=== PATIENT | male | born 1990 | race Caucasian/White ===

== ENCOUNTER 2023-07-26 10:57 | Outpatient (AMB) | payer BC, SELFPAY ==
--- NOTE | 2023-07-26 11:02 | A.OFFVIS_ITS ---
Intake Vital Signs 07/26/23 11:03 Height 5 ft 9 in Weight 167 lb 15.876 oz BMI 24.8 BP 138/82 Blood Pressure Location Rt brachial Position Sitting Pulse 78 Pulse Source Pulse Oximeter Temp 98.4 F Temp Source Skin Pulse Oximetry (%) 99 Oxygen Delivery Method Room Air Intake Visit Reasons: Spondyloarthropathy Intake Note: New patient here for spondyloarthropathy Former patient [facility] Dr[facility] Fabricio Maldonado [facility] [place] c/o left ankle pain that worsens with ambulation. Band Teacher Required: No Accompanied by: Self / Same As Patient Allergies methotrexate Allergy (Mild, Verified 07/26/23 11:03) elevated LFT's Medication List - Last Reconciled 07/26/23 by Amauri Altman MD folic acid 1 mg PO DAILY sulfasalazine 1,500 mg PO BID HPI HPI Comments History of Present Illness Details This is a 32-year-old male with non axial HLA B27 spondyloarthropathy who presents as a new patient. His previous beaver trapper left the practice. Patient states that he has been doing fairly well with no swollen or stiff joints. His PCP has been refilling his sulfasalazine. He is compliant with sulfasalazine 3 tabs Twice daily. States that occasionally he would get pain in his left heel with taking a step and it goes away with the subsequent step. Denies any swelling or stiffness of his ankles. States that his left toes have been deformed since his diagnosis in his 20s, it has not been progressively more deformed. Gets occasional low back pain but it is not an everyday phenomenon. No history suggestive of uveitis Per Dr. Maldonado: Non axial HLA B27 positive spondyloarthropathy which diagnosed in his 20s.? 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 [employer] Eyes Reports no additional complaints Musc Reports back pain and Reports arthralgias Physical Exam Vital Signs: Last Vital Signs Temp 98.4 F 07/26/23 11:03 Pulse 78 07/26/23 11:03 BP 138/82 07/26/23 11:03 Pulse Ox 99 07/26/23 11:03 Oxygen Delivery Method Room Air 07/26/23 11:03 BMI result Body Mass Index 24.8 Const General: cooperative, healthy appearing and comfortable Nutritional Appearance: average body habitus Orientation/consciousness: patient oriented x3 Limitations: no limitations HEENT Head: Yes normocephalic and Yes atraumatic Mouth: moist mucous membranes Resp Effort & Inspection: normal respiratory effort and able to speak in complete sentences Auscultation: clear to auscultation bilaterally Cardio Rate: regular rate Rhythm: regular rhythm GI Inspection: No distended Palpation (GI): Soft to palpation and nontender Skin General skin exam: no rashes or lesions noted Neuro General: patient oriented x3 Extrem Other: No active synovitis Normal range of motion of both elbows or shoulders Negative resisted wrist extension test bilaterally No nail pitting No swollen or tender ankles Mild deformity of his left foot toes with no swelling or tenderness Negative MTP squeeze test bilaterally Assessment & Plan Assessment & Plan (1) Undifferentiated spondyloarthropathy: Comment: HLA b27 +ve dx in his 20s MTX 02/16 partially effective DC due to transaminitis SSZ 06/2018 effective LEF added 2017 ineffective Code(s): M47.819 - Spondylosis without myelopathy or radiculopathy, site unspecified Plan: This is a 32-year-old male with non axial HLA B27 positive spondyloarthropathy who presents as a new patient. His previous beaver trapper left the practice. Patient is in remission on sulfasalazine 1.5 g Twice daily. Continue sulfasalazine 1.5 g Twice daily. Check labs today. Follow-up in 4 months Plan I spent 46 minutes reviewing patient's chart, evaluating patient, ordering diagnostic workup, counseling patient and documenting in the chart Orders: Orders Complete Blood Count Auto Diff Today M47.819 - Spondylosis without myelopathy or radiculopathy, site unspecified Comprehensive Met. Panel Today M47.819 - Spondylosis without myelopathy or radiculopathy, site unspecified C Reactive Protein Today M47.819 - Spondylosis without myelopathy or radiculopathy, site unspecified Erythrocyte Sedimentation Rate Today M47.819 - Spondylosis without myelopathy or radiculopathy, site unspecified Hepatitis A,B,C Profile Today Z11.59 - Encounter for screening for other viral diseases T Spot TB Today Z11.7 - Encounter for testing for latent tuberculosis infection Medications: New sulfasalazine 1,500 mg (3 x 500 mg) PO BID 180 tabs 0RF Coding Level of Care Code New Pt Level 4 (94638) Diagnoses Undifferentiated spondyloarthropathy M47.818
[2023-07-26 11:03] VITALS: BP 138/82; PULSE 78; TEMP 36.9; O2SAT 99; BMI 24.8
== END 2023-07-26 11:37 | disposition home or self-care (01) ==
PROVIDERS: PCP Family Medicine; Visit Provider Student in an Organized Health Care Education/Training Program
DX: M47.819 Spondylosis without myelopathy or radiculopathy, site unspecified (principal)
CPT/HCPCS: 99204

== ENCOUNTER → 2023-07-26 10:57 | Outpatient (BNVA) | payer BC, SELFPAY | PROVIDERS: Visit Provider Student in an Organized Health Care Education/Training Program ==

== ENCOUNTER 2023-08-22 11:12 | Outpatient (REF) | payer BC, SELFPAY ==
[2023-08-22 13:13] LABS: MANUAL DIFF FLAG NO
[2023-08-22 13:24] LABS: Basophils Percent Auto 0.7 % (0-2); Eosinophils Absolute Auto 0.1 X10*3/uL (0.0-0.4); Eosinophils Percent Auto 2.6 % (0-4); Hematocrit 45.4 % (42.0-52.0); Hemoglobin 15.6 g/dl (14.0-18.0); Imm Gran Abs Auto 0.01 X10*3/uL (0.00-0.03); Imm Gran Pct Auto 0.2 % (0.0-0.4); Lymphocytes Absolute Auto 1.5 X10*3/uL (1.2-4.9); Lymphocytes Percent Auto 33.1 % (20-40); Mean Corpuscular HGB Conc 34.4 g/dl (31.0-36.0); Mean Corpuscular Hemoglobin 32.8 pg (27.0-33.0); Mean Corpuscular Volume 95.4 fL (80.0-98.0); Mean Platelet Volume 9.6 fL (9.4-12.4); Monocytes Absolute Auto 0.5 X10*3/uL (0.1-1.2); Monocytes Percent Auto 11.6 % (2-11); Neutrophils Absolute Auto 2.4 x10*3/uL (2.0-8.3); Neutrophils Percent Auto 51.8 % (45-73); Platelet Count 210 X10*3/uL (160-400); Red Blood Count 4.76 X10*6/uL (4.60-5.80); Red Cell Distribution Width 11.4 % (11.0-16.0); White Blood Count 4.6 X10*3/uL (4.8-10.8)
[2023-08-22 13:42] LABS: Alanine Aminotransferase 26 U/L (0-40); Albumin Level 4.3 g/dL (3.5-5.0); Alkaline Phosphatase 86 U/L (39-117); Anion Gap 11 (12-20); Aspartate Amino Transferase 23 U/L (5-37); Bilirubin Total 1.3 mg/dL (0.0-1.0); Blood Urea Nitrogen 8 mg/dL (9-16); C Reactive Protein 0.34 mg/dL (< or = 0.50); Calcium 9.7 mg/dL (8.4-10.2); Carbon Dioxide 25 mmol/L (22-29); Chloride 108 mmol/L (96-108); Estimated Glomerular Filt Rate > 60; Glucose Random 89 mg/dL (60-115); Potassium 3.9 mmol/L (3.3-5.1); Sodium 140 mmol/L (135-145); Total Protein 6.6 g/dL (6.5-8.0)
[2023-08-22 13:58] LABS: Erythrocyte Sedimentation Rate 3 MM/HR (0-15)
[2023-08-23 08:37] LABS: HBS Num1 438.38 mIU/mL (0-7.99); HBc Num1 0.06 S/CO (0.00-0.79); HBsAGNum1 0.27 S/CO (0.00-0.99); Hepatitis A Antibody IgM 0.12 Index (0-0.79); Hepatitis B Core Antibody Nonreactive (Nonreactive); Hepatitis B Surface Antigen Negative (Negative); ~HepC Num1 0.07 S/CO (0.00-0.79); ~Hepatitis A Antibody IgM Nonreactive (Nonreactive); ~Hepatitis B Surface Antibody REACTIVE (Nonreactive); ~Hepatitis C Antibody Nonreactive (Nonreactive)
[2023-08-24 16:28] LABS: TS Negative Control Passed; TS Panel A 2; TS Panel B 0; TS Positive Control Passed; TSpotTB Negative (Negative)
== END 2023-08-22 11:13 | disposition home or self-care (01) ==
LOC: HO.10HDL 11:12
PROVIDERS: Visit Provider Student in an Organized Health Care Education/Training Program
DX: M47.819 Spondylosis without myelopathy or radiculopathy, site unspecified (principal); Z11.7 Encounter for testing for latent tuberculosis infection; Z11.59 Encounter for screening for other viral diseases; Z72.89 Other problems related to lifestyle
CPT/HCPCS: 36415; 80053; 85025; 85652; 86140; 86481; 86704; 86706; 86709; 86803; 87340

== ENCOUNTER 2023-11-19 10:38 | Outpatient (AMB) | payer BC, SELFPAY ==
[2023-11-19 10:44] VITALS: BP 128/70; PULSE 86; TEMP 36.7; O2SAT 98; BMI 24.5
--- NOTE | 2023-11-19 10:44 | MHC.OFFVIS ---
Intake Vital Signs 11/19/23 10:44 Height 5 ft 9 in Weight 166 lb 3.657 oz BMI 24.5 BP 128/70 Blood Pressure Location Rt brachial Position Sitting Pulse 86 Pulse Source Pulse Oximeter Temp 98.1 F Temp Source Skin Pulse Oximetry (%) 98 Oxygen Delivery Method Room Air Intake Visit Reasons: Spondylarthropathy Intake Note: Pt last seen 07/26/23, presents today for follow up and test results. Personal Financial Representative Required: No Accompanied by: Self / Same As Patient Allergies methotrexate Allergy (Mild, Verified 11/19/23 10:45) elevated LFT's Medication List - Last Reconciled 11/19/23 by Amauri Altman MD folic acid 1 mg PO DAILY sulfasalazine Six tabs on Mondays and 3 tabs the rest of the week orally; HPI HPI Comments History of Present Illness Details 33 year old male with HLA B27 positive spondyloarthropathy presents for follow-up. Sulfasalazine is prescribed as 3 tabs Twice daily. But patient states that for years now he has been taking 3 tabs twice daily on Mondays only, the rest of the week he takes 3 tabs once daily in the morning and has been doing well with no flare-ups. Patient has no complaints today. Initial history: This is a 32-year-old male with non axial HLA B27 spondyloarthropathy who presents as a new patient. His previous project management manager left the practice. Patient states that he has been doing fairly well with no swollen or stiff joints. His PCP has been refilling his sulfasalazine. He is compliant with sulfasalazine 3 tabs Twice daily. States that occasionally he would get pain in his left heel with taking a step and it goes away with the subsequent step. Denies any swelling or stiffness of his ankles. States that his left toes have been deformed since his diagnosis in his 20s, it has not been progressively more deformed. Gets occasional low back pain but it is not an everyday phenomenon. No history suggestive of uveitis Per Dr. Maldonado: Non axial HLA B27 positive spondyloarthropathy which diagnosed in his 20s.? 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 [employer] Systems Musc Denies back pain, Denies arthralgias and Denies stiffness Physical Exam Vital Signs: Last Vital Signs Temp 98.1 F 11/19/23 10:44 Pulse 86 11/19/23 10:44 BP 128/70 11/19/23 10:44 Pulse Ox 98 11/19/23 10:44 Oxygen Delivery Method Room Air 11/19/23 10:44 BMI result Body Mass Index 24.5 Const General: cooperative, healthy appearing and comfortable Nutritional Appearance: average body habitus Orientation/consciousness: patient oriented x3 Limitations: no limitations HEENT Head: Yes normocephalic and Yes atraumatic Mouth: moist mucous membranes Resp Effort & Inspection: normal respiratory effort and able to speak in complete sentences Auscultation: clear to auscultation bilaterally Cardio Rate: regular rate Rhythm: regular rhythm GI Inspection: No distended Palpation (GI): Soft to palpation and nontender Skin General skin exam: no rashes or lesions noted Neuro General: patient oriented x3 Extrem Other: No active synovitis Normal range of motion of both elbows or shoulders Negative resisted wrist extension test bilaterally No nail pitting No swollen or tender ankles Negative MTP squeeze test bilaterally Assessment & Plan Assessment & Plan (1) Undifferentiated spondyloarthropathy: Comment: HLA b27 +ve dx in his 20s MTX 02/16 partially effective DC due to transaminitis SSZ 06/2018 effective LEF added 2017 ineffective Code(s): M47.819 - Spondylosis without myelopathy or radiculopathy, site unspecified Plan: This is a 33-year-old male with non axial HLA B27 positive spondyloarthropathy who presents for follow-up. Sulfasalazine is prescribed as 1.5 g twice daily but patient has been taking 3 g on Mondays only, the rest of the week he would take 1.5 g daily. He is in remission Patient can continue with the current dose. Labs before next visit in 4 months (2) On correction drug therapy: Code(s): Z79.899 - Other correction (current) drug therapy Plan: Monitor safety labs (3) Immunization counseling: Code(s): Z71.85 - Encounter for immunization safety counseling Plan: Patient on the flu vaccine for this season, I suggested getting the new COVID booster to help prevent the spread of the current COVID-19 surge, patient is not interested in COVID-19 vaccination Plan I spent 26 minutes reviewing patient's chart, evaluating patient, ordering diagnostic workup, counseling patient and documenting in the chart Coding Level of Care Code Est Pt Level 4 (02009) Diagnoses Undifferentiated spondyloarthropathy M47.819 On buttermaker continuous churn drug therapy Z79.899 Immunization counseling Z71.85
== END 2023-11-19 10:56 | disposition home or self-care (01) ==
PROVIDERS: PCP Family Medicine; Visit Provider Student in an Organized Health Care Education/Training Program
DX: M47.819 Spondylosis without myelopathy or radiculopathy, site unspecified (principal); Z79.899 Other long term (current) drug therapy; Z71.85 Encounter for immunization safety counseling
CPT/HCPCS: 99214

== ENCOUNTER → 2023-11-19 10:38 | Outpatient (BNVA) | payer BC, SELFPAY | PROVIDERS: PCP Family Medicine; Visit Provider Student in an Organized Health Care Education/Training Program ==

== ENCOUNTER 2024-06-02 14:21 | Outpatient (AMB) | payer BC, SELFPAY ==
--- NOTE | 2024-06-02 14:23 | MHC.OFFVIS ---
Vital Signs 06/02/24 14:26 Height 5 ft 9 in Weight 184 lb 4.903 oz BMI 27.2 BP 132/80 Blood Pressure Location Lt brachial Position Sitting Pulse 92 Pulse Source Pulse Oximeter Pulse Oximetry (%) 95 Oxygen Delivery Method Room Air Intake Visit Reasons: SpA /LVM Intake Note: Patient presents for SpA. Allergies methotrexate Allergy (Mild, Verified 06/02/24 14:26) elevated LFT's Medication List - Last Reconciled 06/02/24 by Amauri Altman MD folic acid 1 mg PO DAILY sulfasalazine Six tabs on Mondays and 3 tabs the rest of the week orally; HPI Comments Details: 33 year old male with HLA B27 positive spondyloarthropathy presents for follow-up. Continues to take sulfasalazine 3 g on Mondays and 1.5 g daily the rest of the week. States that he has been feeling reasonably well overall except in when he had pain and swelling of the front of his left knee as well as the back of his knee. He was evaluated and was told that he had a Gerardo's cyst. The cyst was drained and he had a steroid injection with no recurrence of left knee pain and swelling. He continues to have rare pain and swelling of his elbows and ankles. He was having subtle rashes above his eyebrows, the front of his scalp and behind his ears, he was prescribed hydrocortisone cream but he does not use it regularly. He was told he had psoriasis. Initial history: This is a 32-year-old male with non axial HLA B27 spondyloarthropathy who presents as a new patient. His previous anesthesiology physician assistant left the practice. Patient states that he has been doing fairly well with no swollen or stiff joints. His PCP has been refilling his sulfasalazine. He is compliant with sulfasalazine 3 tabs Twice daily. States that occasionally he would get pain in his left heel with taking a step and it goes away with the subsequent step. Denies any swelling or stiffness of his ankles. States that his left toes have been deformed since his diagnosis in his 20s, it has not been progressively more deformed. Gets occasional low back pain but it is not an everyday phenomenon. No history suggestive of uveitis Per Dr. Maldonado: Non axial HLA B27 positive spondyloarthropathy which diagnosed in his 20s.? 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 Musc Denies back pain, Denies arthralgias and Denies stiffness Physical Exam Vital Signs: Last Vital Signs Pulse 92 06/02/24 14:26 BP 132/80 06/02/24 14:26 Pulse Ox 95 06/02/24 14:26 Oxygen Delivery Method Room Air 06/02/24 14:26 BMI result Body Mass Index 27.2 Const General: cooperative, healthy appearing and comfortable Nutritional Appearance: average body habitus Orientation/consciousness: patient oriented x3 Limitations: no limitations HEENT Head: Yes normocephalic and Yes atraumatic Mouth: moist mucous membranes Resp Effort & Inspection: normal respiratory effort and able to speak in complete sentences Auscultation: clear to auscultation bilaterally Cardio Rate: regular rate Rhythm: regular rhythm GI Inspection: No distended Palpation (GI): Soft to palpation and nontender Skin Other: Psoriasis rash on both ears Neuro General: patient oriented x3 Extrem Other: No active synovitis Negative rotator cuff provocative maneuvers bilaterally Negative Speed's test bilaterally Normal range of motion of both elbows or shoulders Negative resisted wrist extension test bilaterally No nail pitting No swollen or tender ankles Negative MTP squeeze test bilaterally Assessment & Plan Assessment & Plan (1) Undifferentiated spondyloarthropathy: Comment: HLA b27 +ve dx in his 20s MTX 02/16 partially effective DC due to transaminitis SSZ 06/2018 effective LEF added 2017 ineffective Code(s): M47.819 - Spondylosis without myelopathy or radiculopathy, site unspecified Category: Medical Plan: This is a 33-year-old male with undifferentiated HLA B27 positive spondyloarthropathy (likely psoriatic arthritis, psoriasis rash noted today) who presents for follow-up. He takes sulfasalazine 3 g on Mondays and 1.5 g daily the rest of the week. It appears that patient had a flare-up affecting his left knee 2023, he had a Gerardo's cyst and swelling of his left knee which was treated with drainage and a steroid injection without recurrence. Advised patient to call the clinic if he develops any similar flare-ups as his sulfasalazine dose may need to be optimized Continue current meds Labs today and before next visit in 6 months (2) On medical office technician drug therapy: Code(s): Z79.899 - Other senior care (current) drug therapy Category: Medical Plan: Monitor safety labs Plan I spent 26 minutes reviewing patient's chart, evaluating patient, ordering diagnostic workup, counseling patient and documenting in the chart Orders: Orders Comprehensive Met. Panel Today M47.819 - Spondylosis without myelopathy or radiculopathy, site unspecified, Z79.899 - Other medical office technician (current) drug therapy Erythrocyte Sedimentation Rate Today M47.819 - Spondylosis without myelopathy or radiculopathy, site unspecified, Z79.899 - Other senior care (current) drug therapy Comprehensive Met. Panel 11/29/24 M47.819 - Spondylosis without myelopathy or radiculopathy, site unspecified, Z79.899 - Other senior care (current) drug therapy C Reactive Protein 11/29/24 M47.819 - Spondylosis without myelopathy or radiculopathy, site unspecified, Z79.899 - Other medical office technician (current) drug therapy C Reactive Protein 11/24/25 M47.819 - Spondylosis without myelopathy or radiculopathy, site unspecified, Z79.899 - Other senior care (current) drug therapy Erythrocyte Sedimentation Rate 11/29/24 M47.819 - Spondylosis without myelopathy or radiculopathy, site unspecified, Z79.899 - Other medical office technician (current) drug therapy Erythrocyte Sedimentation Rate 05/28/25 M47.819 - Spondylosis without myelopathy or radiculopathy, site unspecified, Z79.899 - Other medical office technician (current) drug therapy Complete Blood Count Auto Diff Today M47.819 - Spondylosis without myelopathy or radiculopathy, site unspecified, Z79.899 - Other senior care (current) drug therapy C Reactive Protein Today M47.819 - Spondylosis without myelopathy or radiculopathy, site unspecified, Z79.899 - Other senior care (current) drug therapy Complete Blood Count Auto Diff Today M47.819 - Spondylosis without myelopathy or radiculopathy, site unspecified, Z79.899 - Other senior care (current) drug therapy Complete Blood Count Auto Diff 11/29/24 M47.819 - Spondylosis without myelopathy or radiculopathy, site unspecified, Z79.899 - Other medical office technician (current) drug therapy Complete Blood Count Auto Diff 05/28/25 M47.819 - Spondylosis without myelopathy or radiculopathy, site unspecified, Z79.899 - Other senior care (current) drug therapy Complete Blood Count Auto Diff 11/24/25 M47.819 - Spondylosis without myelopathy or radiculopathy, site unspecified, Z79.899 - Other medical office technician (current) drug therapy Comprehensive Met. Panel Today M47.819 - Spondylosis without myelopathy or radiculopathy, site unspecified, Z79.899 - Other senior care (current) drug therapy Comprehensive Met. Panel 05/28/25 M47.819 - Spondylosis without myelopathy or radiculopathy, site unspecified, Z79.899 - Other senior care (current) drug therapy Comprehensive Met. Panel 11/24/25 M47.819 - Spondylosis without myelopathy or radiculopathy, site unspecified, Z79.899 - Other medical office technician (current) drug therapy C Reactive Protein Today M47.819 - Spondylosis without myelopathy or radiculopathy, site unspecified, Z79.899 - Other medical office technician (current) drug therapy C Reactive Protein 05/28/25 M47.819 - Spondylosis without myelopathy or radiculopathy, site unspecified, Z79.899 - Other senior care (current) drug therapy Erythrocyte Sedimentation Rate Today M47.819 - Spondylosis without myelopathy or radiculopathy, site unspecified, Z79.899 - Other senior care (current) drug therapy Erythrocyte Sedimentation Rate 11/24/25 M47.819 - Spondylosis without myelopathy or radiculopathy, site unspecified, Z79.899 - Other medical office technician (current) drug therapy Medications: Changed From sulfasalazine Six tabs on Mondays and 3 tabs the rest of the week orally; To sulfasalazine Six tabs on Mondays and 3 tabs daily the rest of the week orally; 288 tabs 1RF Coding Level of Care Code Est Pt Level 4 (05984) Diagnoses Undifferentiated spondyloarthropathy M47.819 On senior care drug therapy Z79.899
[2024-06-02 14:26] VITALS: BP 132/80; PULSE 92; O2SAT 95; BMI 27.2
== END 2024-06-02 14:52 | disposition home or self-care (01) ==
PROVIDERS: PCP Family Medicine; Visit Provider Student in an Organized Health Care Education/Training Program
DX: M47.819 Spondylosis without myelopathy or radiculopathy, site unspecified (principal); Z79.899 Other long term (current) drug therapy
CPT/HCPCS: 99214

== ENCOUNTER → 2024-06-02 14:21 | Outpatient (BNVA) | payer BC, SELFPAY | PROVIDERS: PCP Family Medicine; Visit Provider Student in an Organized Health Care Education/Training Program ==

== ENCOUNTER 2024-12-03 14:29 | Outpatient (AMB) | payer BC, SELFPAY ==
--- NOTE | 2024-12-03 14:51 | MHC.OFFVIS ---
Vital Signs 12/03/24 14:54 Height 5 ft 9 in Weight 194 lb 3.636 oz BMI 28.7 BP 142/90 H Blood Pressure Location Lt brachial Position Sitting Pulse 107 H Pulse Source Pulse Oximeter Pulse Oximetry (%) 97 Oxygen Delivery Method Room Air Intake Visit Reasons: SpA/PsA Intake Note: Patient presents for SpA/PsA. Allergies methotrexate Allergy (Mild, Verified 12/03/24 14:53) elevated LFT's Medication List - Last Reconciled 12/03/24 by Amauri Altman MD folic acid 1 mg PO DAILY sulfasalazine Six tabs on Mondays and 3 tabs daily the rest of the week orally; HPI Comments Details: 34-year-old male with psoriatic arthritis returns for follow-up. States that he has been doing well overall. No recent flare-ups. Denies any joint pain swelling or stiffness. 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 Initial history: This is a 32-year-old male with non axial HLA B27 spondyloarthropathy who presents as a new patient. His previous charter coordinator left the practice. Patient states that he has been doing fairly well with no swollen or stiff joints. His PCP has been refilling his sulfasalazine. He is compliant with sulfasalazine 3 tabs Twice daily. States that occasionally he would get pain in his left heel with taking a step and it goes away with the subsequent step. Denies any swelling or stiffness of his ankles. States that his left toes have been deformed since his diagnosis in his 20s, it has not been progressively more deformed. Gets occasional low back pain but it is not an everyday phenomenon. No history suggestive of uveitis Per Dr. Maldonado: Non axial HLA B27 positive spondyloarthropathy which diagnosed in his 20s.? 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 Musc Denies back pain, Denies arthralgias and Denies stiffness Physical Exam Vital Signs: Last Vital Signs Pulse 107 H 12/03/24 14:54 BP 142/90 H 12/03/24 14:54 Pulse Ox 97 12/03/24 14:54 Oxygen Delivery Method Room Air 12/03/24 14:54 BMI result Body Mass Index 28.7 Const General: cooperative, healthy appearing and comfortable Nutritional Appearance: average body habitus Orientation/consciousness: patient oriented x3 Limitations: no limitations HEENT Head: Yes normocephalic and Yes atraumatic Mouth: moist mucous membranes Resp Effort & Inspection: normal respiratory effort and able to speak in complete sentences Auscultation: clear to auscultation bilaterally Cardio Rate: regular rate Rhythm: regular rhythm GI Inspection: No distended Palpation (GI): Soft to palpation and nontender Skin Other: Classic Psoriasis rash on both ears Neuro General: patient oriented x3 Extrem Other: No active synovitis Negative rotator cuff provocative maneuvers bilaterally Negative Speed's test bilaterally Normal range of motion of both elbows or shoulders Negative resisted wrist extension test bilaterally No nail pitting No swollen or tender ankles Negative MTP squeeze test bilaterally Assessment & Plan Assessment & Plan (1) Psoriatic arthritis: Comment: HLA b27 +ve. Initially dx as undifferentiated spondyloarthropathy, relabelled to psoriatic arthritis in 2023 when he had a clear PSO rash dx in his 20s MTX 02/16 partially effective DC due to transaminitis SSZ 06/2018 effective LEF added 2017 ineffective Code(s): L40.50 - Arthropathic psoriasis, unspecified Category: Medical Plan: This is a 34-year-old male with psoriatic arthritis who presents for follow-up. On sulfasalazine 3 g a day on Saturday and 1.5 g a day the rest of the week. Doing well overall with no active synovitis Continue current meds Labs today and before next visit in 6 months (2) On jail drug therapy: Code(s): Z79.899 - Other buttermaker helper (current) drug therapy Category: Medical Plan: Monitor safety labs Plan I spent 26 minutes reviewing patient's chart, evaluating patient, ordering diagnostic workup, counseling patient and documenting in the chart Coding Level of Care Code Est Pt Level 4 (83585) Diagnoses Psoriatic arthritis L40.50 On jail drug therapy Z79.899
[2024-12-03 14:54] VITALS: BP 142/90; PULSE 107; O2SAT 97; BMI 28.7
== END 2024-12-03 15:07 | disposition home or self-care (01) ==
PROVIDERS: PCP Family Medicine; Visit Provider Student in an Organized Health Care Education/Training Program
DX: L40.50 Arthropathic psoriasis, unspecified (principal); Z79.899 Other long term (current) drug therapy
CPT/HCPCS: 99214

== ENCOUNTER 2025-06-16 15:29 | Outpatient (AMB) | payer BC, SELFPAY ==
--- NOTE | 2025-06-16 15:32 | A.OFFVIS_ITS ---
Vital Signs 06/16/25 15:35 Height 5 ft 9 in Weight 204 lb 12.951 oz BMI 30.2 BP 162/98 H Blood Pressure Location Lt brachial Position Sitting Pulse 96 Pulse Source Pulse Oximeter Pulse Oximetry (%) 98 Oxygen Delivery Method Room Air Intake Visit Reasons: PsA Intake Note: Patient presents for PsA follow up. Allergies methotrexate Allergy (Mild, Verified 06/16/25 15:34) elevated LFT's Medication List - Last Reconciled 06/16/25 by Mell Mtz MD sulfasalazine Take 6 tablets by mouth on Mondays and 3 tablets daily the rest of the week HPI Comments Details: Patient is a 34 y.o. 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 Initially dx as undifferentiated spondyloarthropathy, relabelled to psoriatic arthritis in 2023 when he had a clear PSO rash dx in his 20s MTX 02/16 partially effective DC due to transaminitis SSZ 06/2018 effective LEF added 2017 ineffective Initial history: This is a 32-year-old male with non axial HLA B27 spondyloarthropathy who presents as a new patient. His previous plastic fabricator left the practice. Patient states that he has been doing fairly well with no swollen or stiff joints. His PCP has been refilling his sulfasalazine. He is compliant with sulfasalazine 3 tabs Twice daily. States that occasionally he would get pain in his left heel with taking a step and it goes away with the subsequent step. Denies any swelling or stiffness of his ankles. States that his left toes have been deformed since his diagnosis in his 20s, it has not been progressively more deformed. Gets occasional low back pain but it is not an everyday phenomenon. No history suggestive of uveitis Per Dr. Maldonado: Non axial HLA B27 positive spondyloarthropathy which diagnosed in his 20s.? There were findings of left elbow, left knee and left ankle inflammatory arthritis and tenosynovitis Current Rheumatology Medication(s): Sulfasalazine 500mg, take 6 tablets on Mondays and 3 tablets Saturday - Saturday [facility] Medical History (Updated 12/03/24 @ 15:09 by Amauri Altman MD) Psoriasis On skilled nursing drug therapy Surgical History No pertinent past surgical history Family History Mother Tumor of breast Cancer of breast, intraductal Rheumatoid arthritis Father Asthma Social History Household Members: Family Alcohol intake: former Patient Tobacco Use Status: Never used Tobacco Current occupational status: employed 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 Review of Systems Const Details: Review of Systems Constitutional: Denies fever, chills, weight loss ENT: Denies vision changes, eye pain or eye redness, dental caries, dry mouth GI: Denies nausea, vomiting, diarrhea, abdominal pain, change in BM Pulm: Denies SOB, HANSEN, hemoptysis, wheezing Cards: Denies chest pain, palpitations Skin: Denies Raynaud's, rash, nail changes, photosensitivity, SUPERINTENDENT SYSTEM OPERATION: Denies headaches, weakness, paresthesias, recurrent falls MSK: as per HPI All other systems reviewed and are unremarkable except noted above Physical Exam Vital Signs: Last Vital Signs Pulse 96 06/16/25 15:35 BP 162/98 H 06/16/25 15:35 Pulse Ox 98 06/16/25 15:35 Oxygen Delivery Method Room Air 06/16/25 15:35 BMI result Body Mass Index 30.2 Vital signs reviewed Physical Examination CONSTITUITIONAL Patient alert and cooperative. Well appearing and in no apparent painful distress MSK Hands * Right Hand: Able to make a fist. No swelling or tenderness to palpation of these joints. No deformities noted. * Left Hand: Able to make a fist. No swelling or tenderness to palpation of these joints. No deformities noted. Wrists * Right Wrist: Full ROM. 70 degrees of wrist flexion, 80 degrees of wrist extension. No swelling or TTP * Left Wrist: Full ROM. 70 degrees of wrist flexion, 80 degrees of wrist extension. No swelling or TTP Elbows * Right Elbow: Full ROM. No swelling or TTP. No TTP of the medial and lateral epicondyles * Left Elbow: Full ROM. No swelling or TTP. No TTP of the medial and lateral epicondyles Shoulders * Right shoulder: Full ROM. No swelling noted. No TTP of the AC joint, subacromial bursa or posterior shoulder * Left shoulder: Full ROM. No swelling noted. No TTP of the AC joint, subacromial bursa or posterior shoulder Knees * Right knee: Full ROM. No swelling noted. No TTP of the knee joint lie or pes anserine bursa * Left knee: Full ROM. No swelling noted. No TTP of the knee joint lie or pes anserine bursa. Ankles * Right ankle: Good ankle dorsiflexion and plantar flexion. TTP of the ankle joint * Left ankle: Good ankle dorsiflexion and plantar flexion. No TTP of the ankle joint * 1-2+ pitting edema Feet * Right foot: Negative squeeze test * Left foot: Negative squeeze test Tender points? * No tenderness to palpation of the bilateral trapezius, supraspinatus, anterior costochondral junctions, bilateral suboccipital muscle insertions SKIN No rashes Results Reviewed Results Reviewed: 12/22/24 VMG WBC 4.13 Hb 15.7 Plt 224 BUN 12 Cr 0.7 eGFR >60 AST 32 ALT 64 ESR 0 CRP 1.8 Assessment & Plan Assessment & Plan (1) Psoriatic arthritis: Comment: HLA b27 +ve. Initially dx as undifferentiated spondyloarthropathy, relabelled to psoriatic arthritis in 2023 when he had a clear PSO rash dx in his 20s MTX 02/16 partially effective DC due to transaminitis SSZ 06/2018 effective LEF added 2017 ineffective Code(s): L40.50 - Arthropathic psoriasis, unspecified Category: Medical Plan: #PsA Patient is 34 y.o. male with PsA here today for follow up Complaining of worsening joint pain especially involving his ankles and sometimes his elbows Plan - Ankle XRs - Sulfasalazine 1.5g bid - If evidence of degenerative arthritis and no improvement on SSZ we can consider joint injections - RTC 6 months - Labs before visit: CBC, CMP, ESR, CRP (2) Encounter for monitoring sulfasalazine therapy: Code(s): Z51.81 - Encounter for therapeutic drug level monitoring; Z79.899 - Other skilled nursing (current) drug therapy Plan: #Long-term Use of Sulphasalazine Discussed with patient the risks and benefits of sulfasalazine in the management of the rheumatic condition Benefits include: - Reduced pain, reduce mortality, maintenance of remission then reduction of flares Risks include: - GI upset, hemolysis (especially if G6PD deficiency), eosinophilia, headache, dizziness, rash, elevated LFTs Plan I spent 30 minutes reviewing the record and labs, taking a history, examining the patient, discussing the treatment plan, ordering diagnostic work up and documenting in the medical record Orders: Orders XR ankle RT 2V Today M25.571 - Pain in right ankle and joints of right foot, M2 5.572 - Pain in left ankle and joints of left foot Complete Blood Count Auto Diff 6 Months L40.50 - Arthropathic psoriasis, unspecified XR ankle LT 2V Today M25.571 - Pain in right ankle and joints of right foot, M25.572 - Pain in left ankle and joints of left foot Comprehensive Met. Panel 6 Months L40.50 - Arthropathic psoriasis, unspecified C Reactive Protein 6 Months L40.50 - Arthropathic psoriasis, unspecified Erythrocyte Sedimentation Rate 6 Months L40.50 - Arthropathic psoriasis, unspecified Medications: Changed From sulfasalazine Take 6 tablets by mouth on Mondays and 3 tablets daily the rest of the week 288 tabs 1RF L40.50 - Arthropathic psoriasis, unspecified, Z51.81 - Encounter for therapeutic drug level monitoring, Z79.899 - Other technician terminal and repeater (current) drug therapy To sulfasalazine 1.5 grams (3 x 500 mg) PO BID 540 tabs 1RF 90 days L40.50 - Arthropathic psoriasis, unspecified, Z51.81 - Encounter for therapeutic drug level monitoring, Z79.899 - Other skilled nursing (current) drug therapy Coding Level of Care Code Est Pt Level 4 (31588) Complex EM visit Add On G2211 Diagnoses Psoriatic arthritis L40.50 Encounter for monitoring sulfasalazine therapy Z51.81; Z79.899
[2025-06-16 15:35] VITALS: BP 162/98; PULSE 96; O2SAT 98; BMI 30.2
== END 2025-06-16 16:01 | disposition home or self-care (01) ==
LOC: HO.RHE 15:30
PROVIDERS: PCP Family Medicine; Visit Provider Student in an Organized Health Care Education/Training Program
DX: L40.50 Arthropathic psoriasis, unspecified (principal); Z51.81 Encounter for therapeutic drug level monitoring; Z79.899 Other long term (current) drug therapy
CPT/HCPCS: 99214

== ENCOUNTER 2025-07-15 09:34 | Outpatient (AMB) | payer BC, SELFPAY ==
--- NOTE | 2025-07-15 09:41 | A.OFFVIS_ITS ---
Vital Signs 07/15/25 09:48 Height 5 ft 9 in Weight 199 lb 4.766 oz BMI 29.4 BP 140/90 H Blood Pressure Location Lt brachial Position Sitting Pulse 93 Pulse Source Pulse Oximeter Pulse Oximetry (%) 98 Oxygen Delivery Method Room Air Intake Visit Reasons: joint injections Intake Note: Patient presents for joint injections follow up. Allergies methotrexate Allergy (Mild, Verified 07/15/25 09:46) elevated LFT's HPI Comments Details: Patient is a 34 y.o. male with PsA here today for urgent visit for left ankle pain Interval History: Patient last seen 06/16/25 with me - On SSZ 2 tablets twice a day - Complaining of worsening ankle and elbow pain - Increased SSZ to 3 tablets twice a day and sent for Bilateral ankle XRs Today, - On SSZ 3 tablets twice a day - Worsening ankle pain - Does note previous injury to this ankle Rheumatologic History: PsA HLA b27 +ve. Initially dx as undifferentiated spondyloarthropathy, relabelled to psoriatic arthritis in 2023 when he had a clear PSO rash dx in his 20s MTX 02/16 partially effective DC due to transaminitis SSZ 06/2018 effective LEF added 2017 ineffective Initial history: This is a 32-year-old male with non axial HLA B27 spondyloarthropathy who presents as a new patient. 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 Patient states that he has been doing fairly well with no swollen or stiff joints. His PCP has been refilling his sulfasalazine. He is c ompliant with sulfasalazine 3 tabs Twice daily. States that occasionally he would get pain in his left heel with taking a step and it goes away with the subsequent step. Denies any swelling or stiffness of his ankles. States that his left toes have been deformed since his diagnosis in his 20s, it has not been progressively more deformed. Gets occasional low back pain but it is not an everyday phenomenon. No history suggestive of uveitis Per Dr. Maldonado: Non axial HLA B27 positive spondyloarthropathy which diagnosed in his 20s.? There were findings of left elbow, left knee and left ankle inflammatory arthritis and tenosynovitis Current Rheumatology Medication(s): Sulfasalazine 500mg, take 6 tablets on Mondays and 3 tablets Saturday - Saturday [facility] Medical History (Updated 12/03/24 @ 15:09 by Amauri Altman MD) Psoriasis On medical terminologist drug therapy Surgical History No pertinent past surgical history Family History Mother Tumor of breast Cancer of breast, intraductal Rheumatoid arthritis Father Asthma Social History Household Members: Family Alcohol intake: former Patient Tobacco Use Status: Never used Tobacco Current occupational status: employed 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 Review of Systems Const Details: Review of Systems Constitutional: Denies fever, chills, weight loss ENT: Denies vision changes, eye pain or eye redness, dental caries, dry mouth GI: Denies nausea, vomiting, diarrhea, abdominal pain, change in BM Pulm: Denies SOB, HANSEN, hemoptysis, wheezing Cards: Denies chest pain, palpitations Skin: Denies Raynaud's, rash, nail changes, photosensitivity, NETBACKUP ADMIN: Denies headaches, weakness, paresthesias, recurrent falls MSK: as per HPI All other systems reviewed and are unremarkable except noted above Physical Exam Exam Exam: Vital signs reviewed Physical Examination MSK Ankles * Right ankle: Good ankle dorsiflexion and plantar flexion. No swelling. No TTP of the ankle joint * Left ankle: Good ankle dorsiflexion and plantar flexion. Swelling and warmth noted with TTP of the tibotalar > subtalar joint. Vital Signs: Last Vital Signs Pulse 93 07/15/25 09:48 BP 140/90 H 07/15/25 09:48 Pulse Ox 98 07/15/25 09:48 Oxygen Delivery Method Room Air 07/15/25 09:48 BMI result Body Mass Index 29.4 Office Procedures AMB Joint Injection/Aspiration Joint Injection/Aspiration Details: Procedure was explained to the patient and informed consent was obtained. ? Risks associated with the procedure were discussed with the patient including but not limited to bleeding, infection, drug reactions and reactions to the topical anesthetic. Patient made aware of signs to look out for infectious complications. The area of interest was identified and confirmed with patient. ?This was subsequently cleaned with chlorhexidine x 2. ? The area was then anesthetized using ethyl chloride spray. 40 mg Kenalog with 1 cc 1% lidocaine was injected without issue. ?Minimal to no bleeding. ?Patient tolerated procedure. Primary Site: left ankle Prep: site was prepped using aseptic technique and ethochloride spray was applied Injected: 40 mg of, Kenalog, with 1 mL of and 1% plain lidocaine Approach Used: anterior Procedure: The patient tolerated the procedure well Coding - Medium joint Procedure code (CPT) selection complete Office Meds lidocaine (PF) 10 mg/mL (1 %) injection solution Performing Provider: Mell Mtz MD Performing Location: [facility] [place] [facility] Administered by: Teresa Cage RN on 07/15/25 10:06 Dose Route Admin Location Dispensed Lot Number Expiration Date [facility] Manager Shift 1 mL Infiltration 2 mL [id number] 03/31/27 09704-670-55 [employer]OLYN DODSON [place] [employer] Total Dispensed Waste 2 mL 50 % Kenalog 40 mg/mL suspension for injection Performing Provider: Mell Mtz MD Performing Location: [facility] [place] [facility] Administered by: Teresa Cage RN on 07/15/25 10:06 Dose Route Admin Location Dispensed Lot Number Expiration Date [facility] Manager Shift 40 mg intra-articular 1 mL [id number] 03/31/26 [address]-2 L [employer] Total Dispensed Waste 1 mL 0 % Results Reviewed Results Reviewed: Ankle XR report reviewed Assessment & Plan Assessment & Plan (1) Degenerative arthritis of left ankle: Code(s): M19.072 - Primary osteoarthritis, left ankle and foot Qualifiers: Osteoarthritis type: other secondary Qualified Code(s): M19.272 - Secondary osteoarthritis, left ankle and foot Plan: #Degenerative disease of the left ankle Patient with PsA here today with left ankle pain and swelling, consistent with degenerative disease of the ankle Given steroid injection today. If no improvement will get ankle MRI May consider increasing immunosuppresion to see if there is additional PsA activity that needs to be improved Plan - S/p left ankle steroid injection to tibiotalar joint - Continue SSZ Plan I spent 20 minutes reviewing the record and labs, taking a history, examining the patient, discussing the treatment plan, and documenting in the medical record Orders: Orders AMB Joint Injection/Aspiration Today M19.072 - Primary osteoarthritis, left ankle and foot Coding Level of Care Code Est Pt Level 3 (69697) Diagnoses Other secondary osteoarthritis of left ankle M19.272 Osteoarthritis type: other secondary CPT Codes Coding - Medium joint: 75626 - Medium joint ([id number])
[2025-07-15 09:48] VITALS: BP 140/90; PULSE 93; O2SAT 98; BMI 29.4
--- OUTSIDE RECORDS SUMMARY | 2025-07-15 10:15 | XMS_ITS | Clinical Summary ---
Author Organization [facility] Address [address] [place] [id number] Phone Care Team Providers Care Slots Manager Name Role Phone Fabricio Maldonado MD Primary Care Provider [phone] Social History Tobacco Use Types Packs/Day Years Used Date Smoking Tobacco: Never Assessed Sex and Gender Information Value Date Recorded Sex Assigned at Not on file Legal Sex Male 9:08 PM EDT Gender Identity Not on file Sexual Orientation Not on file Plan of Treatment Health Maintenance Due Date Last Done Comments LIPID PANEL 1988 DEPRESSION SCREENING 2000 HEPATITIS C SCREENING 2006 HIV ONE-TIME SCREENING (18-6 5 YEARS) 2006 COVID-19 VACCINE (3 2023-2 5 season) 2024 04/27/2021, 04/06/2021 Adult Td,Tdap Booster 10/18/2031 10/18/2021 HEPATITIS A VACCINES Aged Out No long er eligible based on patient's age to complete this topic HIB VACCINES Aged Out No longer eligi ble based on patient's age to complete this topic MENINGOCOCCAL VACCINES (ACWY) Aged Out No longer eligible based on patient's age to complete this topic MENINGOCOCCAL VACCINES (B) Aged Out N o longer eligible based on patient's age to complete this topic PNEUMOCOCCAL VACCINES (0-49 years) Aged Out No longer eligible b ased on patient's age to complete this topic Medical Devices Not on file [facility] Care Teams Slots Manager Relationship Specialty Start Date End Date Fabricio Maldonado MD [email or web address] PCP - General Rheumatology 03/20/21 Additional Source Comments The information contained in this document represents components of the legal health record. It is not the complete legal health record.[facility]
== END 2025-07-15 10:10 | disposition home or self-care (01) ==
LOC: HO.RHES 09:36
PROVIDERS: PCP Family Medicine; Visit Provider Student in an Organized Health Care Education/Training Program
DX: M19.072 Primary osteoarthritis, left ankle and foot (principal); M19.272 Secondary osteoarthritis, left ankle and foot
CPT/HCPCS: 20605; 99213

== ENCOUNTER → 2025-07-15 09:34 | Outpatient (BNVA) | payer BC, SELFPAY | PROVIDERS: PCP Family Medicine; Visit Provider Student in an Organized Health Care Education/Training Program | DX: L40.50 Arthropathic psoriasis, unspecified (principal); M19.272 Secondary osteoarthritis, left ankle and foot | CPT/HCPCS: 20605; J2003; J3300 ==